=== PATIENT | female | born 1995 | race Two or more races ===

== ENCOUNTER 2018-01-10 12:35 | Emergency (ER) | payer OTHER ==
[2018-01-10] MEDS ORDERED: DEXAMETHASONE 10 MG/ML VIAL PO STA (14:36)
[2018-01-10] MEDS ORDERED: LIDOCAINE PATCH 5% TOP STA (14:36)
--- NOTE | 2018-01-10 14:59 | ED Physician Documentation ---
History of Present Illness - Stated complaint Stated Complaint: LOWER BACK PX - Chief complaint Chief Complaint: Back Pain - Additonal information Additional information: hx from pt 22 [place] f active and lifts weights nagging low back pain for weeks then last week stood up from a crouch on flight [place] and developed severe low back pain seen at medical txed withg a shot(? toradol?) and flexeril feeling better but conerned she doesnt really know what is causing the pain or how long it will hurt and hse might need more flexeril while she is on leave no fever no IV IM meds drugs no abd pain no numbness or weakness pain rad to denisa buttocks no further no numbness or weakness no incont hematuria dysuria denies preg Review of Systems Constitutional: denies: Fever Cardiac: denies: Chest pain / pressure Respiratory: denies: Dyspnea GI: denies: Abdominal Pain : denies: Dysuria, Incontinent, Hematuria, Now EGA Musculoskeletal: reports: Back pain Neurologic: denies: Focal weakness, Numbness PD PAST MEDICAL HISTORY - Past Medical History Past Medical History: No - Past Surgical History Past Surgical History: No - Present Medications Home Medications: Ambulatory Orders Medication Instructions Recorded Confirmed Cyclobenzaprine [Flexeril] 10 mg 01/10/18 Cyclobenzaprine [Flexeril] 10 mg PO TID PRN #20 tablet 01/10/18 Ibuprofen 800 mg 01/10/18 Lidocaine Patch 5% [Lidoderm Patch] 1 patch TOP DAILY PRN #10 patch 01/10/18 - Allergies Allergies/Adverse Reactions: Allergies Allergy/AdvReac Type Severity Reaction Status Date / Time No Known Drug Allergies Allergy Verified 01/10/18 12:43 - Social History Does the pt smoke?: No Smoking Status: Never smoker Does the pt drink ETOH?: No Does the pt have substance abuse?: No - Immunizations Immunizations are current?: Yes - POLST Patient has POLST: No PD ED PE NORMAL - Vitals Vital signs reviewed: Yes - General General: Alert and oriented X 3 - HEENT HEENT: PERRL - Neck Neck: Supple, no meningeal sign - Cardiac Cardiac: RRR, No murmur - Respiratory Respiratory: No respiratory distress, Clear bilaterally - Abdomen Abdomen: Non tender, Other (no pulsatile mass) - Back Back: No spinal TTP (no redness swelling erythema) - Derm Derm: Normal color - Neuro Neuro: No motor deficit, No sensory deficit, Other (hip flex knee ext foot dorsi plantar and great to ext all 5/5, patellar DTR 2/4 no clonus neg SLR denies saddle anesthesia) Results - Vitals Vitals: Vital Signs - 24 hr 01/10/18 12:42 Temperature 36.8 C Heart Rate 80 Respiratory 18 Rate Blood Pressure 131/76 H O2 Saturation 99 Oxygen O2 Source Room air Departure - Departure Disposition: Home, Self Care Clinical Impression: Back pain Qualifiers: Back pain location: low back pain Chronicity: acute Back pain laterality: unspecified Sciatica presence: without sciatica Qualified Code(s): M54.5 - Low back pain Condition: Good Instructions: ED Sprain Strain Lumbar Follow-Up: [facility] [Provider Group] Prescriptions: Cyclobenzaprine [Flexeril] 10 mg PO TID PRN #20 tablet PRN Reason: Spasms Lidocaine Patch 5% [Lidoderm Patch] 1 patch TOP DAILY PRN #10 patch PRN Reason: pain Comments: Your history and exam do not suggest a spine infection, a herniated disk, and aneurysm, or kidney problems The pain seems to be coming from spasm of the big extensor muscle groups where they attach to your pelvic ring. This should get better and you will be fine I have refilled your flexeril. Keep taking your motrin/ibuprofen. And I also prescribed lidocaine patches to be used up to 12 hr a day as needed Rest your back - no lifting or twisting for 2 weeks Follow up [facility] Return if worse
[2018-01-10 15:10] VITALS: BP 130/76
== END 2018-01-10 15:09 | disposition home or self-care (01) ==
LOC: ED 12:35
DX: M54.5 Low back pain (principal)
CPT/HCPCS: 99283; A9270